=== PATIENT | female | born 1980 | race Caucasian/White ===

== ENCOUNTER 2024-03-19 19:43 | Emergency (ER) | payer MEDICAID ==
[~2024-03-19] VITALS: Ht 154.9 cm; Wt 79.7 kg
[2024-03-19 20:02] VITALS: TEMP 97.9
[2024-03-19 20:56] VITALS: PULSE 74; RESP 20; O2SAT 95
[2024-03-19] MEDS: IPRATROPIUM BROMIDE (0.02%) 0.5MG/2.5ML NEB HHN STA (20:56)
[2024-03-19] MEDS: DEXAMETHASONE 10 MG/ML VIAL IM ONE (21:19)
[2024-03-19] MEDS: ALBUTEROL (0.083%) 2.5MG/3ML NEB HHN SCH (21:30)
[2024-03-19 21:33] VITALS: PULSE 72; RESP 18; O2SAT 96
[2024-03-19] MEDS ORDERED: ALBU6.7H15 INH (22:33)
[2024-03-19] MEDS ORDERED: CEFD300C3 MT (22:33)
[2024-03-19 22:51] VITALS: BP 136/68; PULSE 68; RESP 18
== END 2024-03-19 22:53 | disposition home or self-care (01) ==
LOC: ER 19:43
DX: J18.9 Pneumonia, unspecified organism (principal); J45.909 Unspecified asthma, uncomplicated; E11.9 Type 2 diabetes mellitus without complications; F17.210 Nicotine dependence, cigarettes, uncomplicated
CPT/HCPCS: 71045; 94640; 96372; 99285; J1100; Z7610 ×4